=== PATIENT | male | born 1965 | race Caucasian/White ===

== ENCOUNTER 2016-08-05 18:13 | Emergency (ER) | payer OTHER ==
[2016-08-06 07:18] LABS: ALLENS TEST Pos; BE (BASE EXCESS) 1.9 MEQ/L (0 +/- 2.5); CARBOXYHEMOGLOBIN 1.6 % (0-3); HCO3 (ACTUAL BICARBONATE) 25.8 MEQ/L (23-27); HEMOBLOGIN CONTENT 15.2 G/DL (14-18); INSTRUMENT SERIAL # 8087; METHEMOGLOBIN 0.3 % (0-3); O2 CONTENT 20.1 VOL% (18-24); OPERATOR ID 35091; PCO2 (CO2 TENSION) 38 MMHG (35-45); PO2 (O2 TENSION) 84 MMHG (79-93); SAMPLE Arterial; pH 7.45 (7.37-7.43)
== END 2016-08-05 20:03 | disposition home or self-care (01) ==
LOC: ER 18:13
PROVIDERS: Nurse Practitioner
DX: T59.4X1A Toxic effect of chlorine gas, accidental (unintentional), initial encounter (principal)
CPT/HCPCS: 36600; 71020; 73560-LT; 82805; 94640; 99284